=== PATIENT | male | born 1945 | race Caucasian/White ===

== ENCOUNTER 2019-08-01 13:17 | Inpatient (IN) | payer OTHER ==
[~2019-08-01] VITALS: Ht 182.9 cm; Wt 124.3 kg
[2019-08-01] VITALS (29 sets, daily range): BP systolic 41–165; BP diastolic 16–108
--- NOTE | 2019-08-01 13:20 | NUR ---
NELA RA [facility] FROM [facility], UNRESPONSIVE AT 1230 PM, LAST SEEN WELL AT 1130, pt to bed 5, pt on monitor, -sob, pending md knutson
[2019-08-01] MEDS ORDERED: LACT1CAP71 PO (13:58)
[2019-08-01] MEDS ORDERED: MYCO500T PO (13:58)
[2019-08-01] MEDS ORDERED: SENN-168 PO (13:58)
[2019-08-01] MEDS ORDERED: METO25TA20 PO (13:58)
[2019-08-01] MEDS ORDERED: CYCL100C8 PO (13:58)
[2019-08-01] MEDS ORDERED: FOLI1CAP7 PO (13:58)
[2019-08-01] MEDS ORDERED: FEBU40TA PO (13:58)
[2019-08-01] MEDS ORDERED: INSU100V7 SQ (13:58)
[2019-08-01] MEDS ORDERED: PRED2.5T PO (13:58)
[2019-08-01] MEDS ORDERED: ZINC1CAP2 PO (13:58)
[2019-08-01] MEDS ORDERED: LEVO750T21 PO (13:58)
[2019-08-01] MEDS ORDERED: LEVA0.6320 IH (13:58)
[2019-08-01] MEDS ORDERED: ASCO500T9 PO (13:58)
[2019-08-01] MEDS ORDERED: GLUC1KIT IM (13:58)
[2019-08-01] MEDS ORDERED: DOCU-141 PO (13:58)
[2019-08-01] MEDS ORDERED: DILT180C93 PO (13:58)
[2019-08-01] MEDS ORDERED: ATOR10TA PO (13:58)
[2019-08-01] MEDS ORDERED: LISI2.5T2 PO (13:58)
[2019-08-01] MEDS ORDERED: FOLI0.8T PO (13:58)
[2019-08-01] MEDS ORDERED: AMIN30LI2 PO (13:58)
[2019-08-01] MEDS ORDERED: TAMS-12 PO (13:58)
[2019-08-01] MEDS ORDERED: INSU100V27 SQ (13:58)
[2019-08-01] MEDS ORDERED: APIX5TAB PO (13:58)
[2019-08-01] MEDS ORDERED: PANT40TA2 PO (13:58)
[2019-08-01] MEDS ORDERED: LOPE2TAB25 PO (13:58)
[2019-08-01] MEDS ORDERED: TRAM50TA2 PO (13:58)
[2019-08-01] MEDS ORDERED: FERR325T23 PO (13:58)
[2019-08-01] MEDS ORDERED: ACET-868 PO (13:58)
[2019-08-01] MEDS ORDERED: ASPI-1169 PO (13:58)
[2019-08-01] MEDS ORDERED: PREG100C PO (13:58)
[2019-08-01] MEDS ORDERED: FURO-145 PO (13:58)
[2019-08-01] MEDS ORDERED: METR500T PO (13:58)
[2019-08-01 14:00] LABS: CARBON DIOXIDE 20 mmol/L (21-32); CHLORIDE 97 mmol/L (98-107); GLUCOSE 129 mg/dL (74-106); POTASSIUM 4.1 mmol/L (3.5-5.1); SODIUM SERUM 133 mmol/L (136-145)
[2019-08-01] MEDS ORDERED: IV NS 0.9% 1,000 ML BAG IV ONE (14:00)
[2019-08-01] MEDS ORDERED: VANCOMYCIN HCL 1 GM in IV D5W 260 ML IV ONE (14:00)
[2019-08-01] MEDS ORDERED: PIPERACILLIN /TAZOBACTAM 3.375 G in IV D5W 50 ML IV ONE (14:00)
[2019-08-01] MEDS ORDERED: NOREPINEPHRINE 8 MG in IV D5W 500 ML IV ONE (14:00)
[2019-08-01 14:01] LABS: CALCIUM, SERUM 7.1 mg/dL (8.5-10.1); UREA NITROGEN, BLOOD 92 mg/dL (7-18)
--- NOTE | 2019-08-01 14:03 | NUR ---
per dr tran to start levophed on piv, called picc line nurse at this time
[2019-08-01 14:07] LABS: APPEARANCE,URINE Cloudy (CLEAR); BILIRUBIN,URINE Negative (NEGATIVE); BLOOD, URINE Negative Ery/uL (NEGATIVE); COLOR,URINE Yellow (YELLOW); KETONES,URINE Negative (NEGATIVE); LEUKOCYTE ESTERASE ,URINE Trace (NEGATIVE); NITRITE, URINE Negative (NEGATIVE); PROTEIN,URINE Trace mg/dl (NEGATIVE); UGLUCOSE Negative (NEGATIVE); UROBILINOGEN,URINE 0.2 EU/dL (0.2)
[2019-08-01 14:10] LABS: ALKALINE PHOSPHATASE 50 U/L (46-116); ASPARTATE AMINOTRANSFERASE 60 U/L (15-37); BILIRUBIN,DIRECT 0.2 mg/dL (0.0-0.2); BILIRUBIN,TOTAL 0.3 mg/dL (0.2-1.0)
[2019-08-01 14:11] LABS: ACETAMINOPHEN 0 ug/ml (10-30); ALANINE AMINOTRANSFERASE 23 U/L (12-78); ALCOHOL, BLOOD 0 mg/dL (0-0); SALICYLATE 2.3 mg/dL (2.8-20.0); TOTAL PROTEIN, SERUM 5.6 g/dL (6.4-8.2)
[2019-08-01 14:18] LABS: BACTERIA,URINE Few /HPF (None Seen); RBC,URINE 0-2 /HPF (0-2); SQUAMOUS EPITHELIAL CELL,UR None Seen /HPF (None Seen)
[2019-08-01] MEDS ORDERED: PROPOFOL 0 ML ONE (14:25)
--- NOTE | 2019-08-01 14:26 | NUR ---
rsi initiated by dr. tran orders for succ 100, etomidate 20, given ivp under md's direct supervision
[2019-08-01] MEDS ORDERED: MORPHINE SULFATE INJ 2 MG/ML DISP.SYRIN IV ONE (14:30)
[2019-08-01] MEDS ORDERED: SUCCINYLCHOLINE CHLORIDE 20 MG/ML VIAL IV ONE (14:30)
[2019-08-01] MEDS ORDERED: ETOMIDATE 2 MG/ML VIAL IV ONE (14:30)
--- NOTE | 2019-08-01 14:36 | NUR ---
PT INTUBATED BY KITTY ESPAÑA W/8ETT @ 24CM LIPLINE, TIBE PLACEMENT CONFIRMED W/ POSITIVE COLOR CHANGE ON CO2 DETECTOR, EQUAL BREATH SOUNDS. PLACED ON PB840 VENT W/ SETTINGS PER . ALARMS CHECKED AND AUDIBLE, VENT IN RED OUTLET. ETT SECURED, PATENT, PT SX'ED PRN. BREATH SOUNDS EQUAL, DIMINISHED/RHONCHI. Addendum: 08/01/19 at 1438 by REX MORTENSEN RT Amended: Links added.
[2019-08-01] MEDS ORDERED: MORPHINE SULFATE INJ 2 MG/ML DISP.SYRIN ONE (14:42)
[2019-08-01] MEDS ORDERED: MORPHINE SULFATE INJ 4 MG/ML DISP.SYRIN ONE (14:42)
--- NOTE | 2019-08-01 14:50 | NUR ---
pt to ct
--- NOTE | 2019-08-01 14:54 | NUR ---
BACK FROM CT
[2019-08-01 15:09] LABS: BASOPHILS # (AUTO) 0.1 /CMM (0.0-0.2); BASOPHILS % (AUTO) 0.2 % (0.0-2.0); EOSINOPHILS % (AUTO) 0.1 % (0.0-6.0); HEMATOCRIT 29 % (39-51); HEMOGLOBIN 8.6 g/dL (13.5-17.5); LYMPHOCYTES # (AUTO) 1.2 /CMM (0.8-4.8); LYMPHOCYTES % (AUTO) 3.8 % (20.0-44.0); MEAN CORPUSCULAR HGB CONC 30 g/dl (31.0-36.0); MEAN CORPUSCULAR VOLUME 82 fL (80-96); NEUTROPHILS # (AUTO) 29.3 /CMM (1.8-8.9); NEUTROPHILS % (AUTO) 89.9 % (43.0-81.0); PLATELET COUNT (AUTO) 312 /CMM (150-450); RED BLOOD CELL COUNT(AUTO) 3.53 MIL/uL (4.5-6.0)
--- NOTE | 2019-08-01 15:10 | NUR ---
spoke to presley schaeffer, will call back for ct
--- NOTE | 2019-08-01 15:11 | NUR ---
BED [id number]
--- NOTE | 2019-08-01 15:29 | NUR ---
PAGED THRU EXCHANGE AND CELL NUMBER
[2019-08-01 15:30] LABS: WHITE BLOOD COUNT (AUTO) 32.6 K/uL (4.3-11.0)
[2019-08-01 15:48] LABS: LYMPHOCYTES % (MANUAL) 6 % (16-48); MONOCYTES % (MANUAL) 4 % (0-11.0); NEUTROPHILS % (MANUAL) 90 (42-76)
[2019-08-01 15:49] LABS: ABG BASE EXCESS -15.4 mmol/L; ABG OXYGEN SATURATION 98.4 % (92.0-98.5); ABG PCO2 43.9 mmHg (35.0-45.0); ABG PH 7.104 (7.350-7.450); ABG PO2 210.7 mmHg (75.0-100.0); AaDO2 458.4 mmHg; COHb 0.3 % (0.5-1.5); MetHb 0.4 % (0.0-1.5); O2Hb 97.7 % (94.0-97.0); PEEP,BG 0 cm H2O; SITE, ABG Left Brachial; VT, ABG 500 mL
--- NOTE | 2019-08-01 16:23 | NUR ---
pt taken up to icu roon 256 via acls transfer
[2019-08-01] MEDS ORDERED: ALBUTEROL FS 2.5 MG/0.5 ML VIAL.NEB NEB PRN (16:30)
[2019-08-01] MEDS ORDERED: IPRATROPIUM NEB FS 0.5 MG/2.5 ML AMPUL.NEB NEB PRN (16:30)
[2019-08-01] MEDS ORDERED: IV NS 0.9% 1,000 ML BAG IV PRN (16:30)
[2019-08-01] MEDS ORDERED: NOREPINEPHRINE 8 MG in IV D5W 500 ML IV PRN (16:30)
--- NOTE | 2019-08-01 16:30 | NUR ---
RN NOTES RECEIVED PATIENT FROM ER. ORALLY INTUBATED WITH ETT 8CM AT 24.5CM ON THE LIP. VENT SETTINGS FOLLOWS AC 18, VT AT 550, FIO2 AT 100%, PEEP OF 5. SATS ON THE LOW 90'S. WITH ONGOING LEVOPHED AT 40 MCG/ MIN STARTED AT THE ER- WILL CONTINUE TO MONITOR AND INFUSE MEDICATION. PATIENT CLEANED AND MADE COMFORTABLE TO BED, SKIN ASSESSMENT AND PICTURES TAKEN. PATIENT ATTACHED TO MONITOR FOR MONITORING. DR. ROMANO AT THE UNIT, WITH ORDERS MADE AND CARRIED OUT. CLARIFIED WITH DR ROMANO IF LEVOPHED CAN BE GIVEN ON DOUBLE CONCENTRATION. GAVE OKAY TO ORDER. ALSO VERBALIZED ORDER TO INSERT OGT TO ENABLE US TO ADMINISTER MEDICATION. ORDER NOTED AND CARRIED OUT
[2019-08-01] MEDS ORDERED: NOREPINEPHRINE 16 MG in IV D5W 500 ML IV PRN (17:00)
[2019-08-01] MEDS ORDERED: DEXTROSE 50%-WATER 50 ML DISP.SYRIN IV PRN (17:00)
--- NOTE | 2019-08-01 17:34 | NUR ---
PATIENT REC'D FROM ER [facility]. ALARMS CHECKED + AUDIBLE. PATIENT IN CRITICAL CONDITION. AMBU BAG AT HOB Addendum: 08/01/19 at 1735 by NATTY MODI RT Amended: Links added.
[2019-08-01] MEDS: Sodium Bicarbonate 100 MEQ in IV NS 0.9% 1,000 ML IV PRN (17:41)
[2019-08-01] MEDS: MYCOPHENOLATE MOFETIL 250 MG CAPSULE PO SCH (18:13)
[2019-08-01] MEDS: ASCORBIC ACID 500 MG TABLET PO SCH (18:13)
[2019-08-01] MEDS: APIXABAN 2.5 MG TABLET PO SCH (18:13)
[2019-08-01] MEDS: BLOOD SUGAR DIAGNOSTIC 1 EACH STRIP IN SCH ×2 (18:14→23:46)
[2019-08-01] MEDS: INSULIN REGULAR, HUMAN 100 UNIT/ML 3 ML VIAL SQ PRN ×2 (18:15→23:56)
[2019-08-01] MEDS: VANCOMYCIN HCL 125 MG/2.5 ML ORAL.SUSP NG SCH (18:17)
[2019-08-01] MEDS: LACTOBACILLUS RHAMNOSUS GG 1 EACH CAP.SPRINK PO SCH (18:17)
--- NOTE | 2019-08-01 19:30 | NUR ---
RN NOTES ENDORSED PATIENT FOR CONTINUITY OF CARE. SEDATED WITH DIPRIVAN AT 5MCG/MIN. STILL ON VENT AND TOLERATING CURRENT VENT SETTING. ON LEVOPHED AT 2MCG/MIN AND IVF AT 100CC/HR. HOB ELEVATED. BILATERAL SOFT RESTRAINTS IN PLACE. SAFETY MEASURES IN PLACE
--- NOTE | 2019-08-01 19:30 | NUR ---
RAILROAD POLICE NOTE PATIENT RECEIVED FROM DAY SHIFT IN BED ORALLY INTUBATED WITH OGT IN PLACE FOR MEDS PER DR ROMANO. PATIENT CURRENTLY STARTED ON PROPOFOL DRIP AT 5MG. PATIENT STILL RESTLESS APPEARS UNCOMFORTABLE. TITRATING UP TO 10 MCG. RN WILL CONTINUE TO MONITOR MENTAL STATUS. PATIENT TOLERATING CURRENT VENT SETTINGS. NO S/S OF RESP DISTRESS. SATURATION 98%. PATIENT HAS EVERT PICC LINE RUNNING LEVO AT 2 MG, AND NS AT 100 ML/HR. PATIENT GIVEN ORAL CARE AND TURNED AND REPOSITIONED. RN WILL CONTINUE TO MONITOR FOR CHANGES. SAFETY PRECAUTIONS IN PLACE.
--- NOTE | 2019-08-01 19:58 | NUR ---
PRODUCT TRAINER NOTE CRITICAL MG REPORTED TO ROSALINA 0.6, ORDERED 6 GRAMS OF MG TO BE GIVEN IV
[2019-08-01] MEDS ORDERED: Magnesium 1GM/D5W 100ML PREMIX PIGGYBACK IV ONE (20:00)
--- NOTE | 2019-08-01 20:00 | NUR ---
ORNAMENTAL BRONZE WORKER NOTE PATIENT BECAME SEVERELY HYPOTENSIVE, MD ROMANO NOTIFIED ORDERED 500 NSS BOLUS, 1 UNIT PRBC, 25 G OF ALBUMIN AND START MARIA G DRIP WHEN LEVO MAXES OUT.
--- NOTE | 2019-08-01 20:10 | NUR ---
RECEIVED PT INTUBATED 8.0 ETT SECURED AT 24CM AT THE LIP. NO RESP DISTRESS. PT TOLERATING VENT SETTINGS. SX'D FOR MOD AMT OF THICK WHITE SECRETIONS. VENT ALARMS SET AND AUDIBLE. AMBU BAG AT BEDSIDE. CONTINUE [facility] VENT SUPPORT. Addendum: 08/01/19 at 2011 by JAMIE WEBSTER RT Amended: Links added.
[2019-08-01] MEDS: Magnesium 1GM/D5W 100ML PREMIX 100 ML IV SCH ×3 (20:32→23:46)
[2019-08-01 20:55] LABS: ABG BASE EXCESS -15.3 mmol/L; ABG OXYGEN SATURATION 95.7 % (92.0-98.5); ABG PCO2 45.4 mmHg (35.0-45.0); ABG PH 7.097 (7.350-7.450); ABG PO2 104.8 mmHg (75.0-100.0); AaDO2 562.8 mmHg; COHb 0.3 % (0.5-1.5); MetHb 0.4 % (0.0-1.5); SITE, ABG Right Radial
--- NOTE | 2019-08-01 20:57 | NUR ---
STAT ABG DONE. NOTIFIED RAVIN GAMABAKING FACTORY WORKER WITH THE RESULT.
[2019-08-01] MEDS ORDERED: IV NS 0.9% 500 ML IV ONE (21:00)
[2019-08-01] MEDS ORDERED: ALBUMIN 25% 12.5 GM/50 ML BOTTLE IV ONE ×2 (21:00)
[2019-08-01] MEDS ORDERED: HEPARIN SODIUM, PORCINE 5000 UNITS/1 ML VIAL SQ SCH (21:00)
[2019-08-01 21:34] LABS: CALCIUM, SERUM 6.4 mg/dL (8.5-10.1); CARBON DIOXIDE 17 mmol/L (21-32); CHLORIDE 99 mmol/L (98-107); CREATININE 5.6 mg/dL (0.6-1.3); GLUCOSE 252 mg/dL (74-106); POTASSIUM 4.2 mmol/L (3.5-5.1); SODIUM SERUM 135 mmol/L (136-145); UREA NITROGEN, BLOOD 79 mg/dL (7-18)
[2019-08-01] MEDS ORDERED: PHENYLEPHRINE 10 MG/ML VIAL ONE (21:36)
[2019-08-01] MEDS: PIPERACILLIN /TAZOBACTAM 2.25 G in IV D5W 50 ML IV SCH (21:55)
[2019-08-01] MEDS: ATORVASTATIN 10 MG TABLET PO SCH (22:09)
[2019-08-01] MEDS: FAMOTIDINE/PF INJ 20 MG/2 ML VIAL IV SCH (22:09)
[2019-08-01] MEDS: PHENYLEPHRINE 80 MG in IV D5W 250 ML IV PRN (22:28)
[2019-08-01] MEDS ORDERED: SODIUM BICARBONATE SYR 50 MEQ/50 ML DISP.SYRIN IV ONE (22:30)
[2019-08-01] MEDS ORDERED: INSULIN GLARGINE, 100 UNIT/ML CARTRIDGE SQ ONE (22:30)
--- NOTE | 2019-08-01 22:30 | NUR ---
MANAGER CANCER NOTE DTR OF PATIENT, DONATO, ARRIVED ON UNIT AND REQUESTED THAT PATIENT BE DNR PER PATIENT'S PREVIOUS ADVANCED DIRECTIVE. NOTIFIED OF FAMILY WISHES AND MD ROMANO APPROVED. CODE STATUS CHAGNED
--- NOTE | 2019-08-01 23:12 | NUR ---
VT CHANGED TO [address] ROMANO
[2019-08-01] MEDS: PROPOFOL 100 ML IV PRN (23:44)
[2019-08-01] MEDS: NOREPINEPHRINE 16 MG in IV D5W 500 ML IV PRN (23:50)
[2019-08-02] VITALS (105 sets, daily range): BP systolic 43–137; BP diastolic 21–86
--- NOTE | 2019-08-02 | NUR ---
WATER REUSE PROGRAM MANAGER NOTE BP STABALIZED ON MARIA G AND LEVO RN WILL CONTINUE TO MONITOR AND TITRATE NEEDED
[2019-08-02] MEDS: VANCOMYCIN HCL 125 MG/2.5 ML ORAL.SUSP NG SCH ×5 (00:22→23:22)
[2019-08-02] MEDS: Magnesium 1GM/D5W 100ML PREMIX 100 ML IV SCH ×3 (00:59→03:11)
[2019-08-02] MEDS: NOREPINEPHRINE 16 MG in IV D5W 500 ML IV PRN ×3 (03:12→17:10)
[2019-08-02] MEDS: PIPERACILLIN /TAZOBACTAM 2.25 G in IV D5W 50 ML IV SCH ×3 (04:14→21:38)
[2019-08-02] MEDS: Sodium Bicarbonate 100 MEQ in IV NS 0.9% 1,000 ML IV PRN ×2 (04:26→11:31)
[2019-08-02] MEDS: BLOOD SUGAR DIAGNOSTIC 1 EACH STRIP IN SCH ×4 (06:07→23:21)
[2019-08-02 06:11] LABS: BASOPHILS % (AUTO) 0.1 % (0.0-2.0); HEMATOCRIT 33 % (39-51); HEMOGLOBIN 10.2 g/dL (13.5-17.5); LYMPHOCYTES # (AUTO) 1.3 /CMM (0.8-4.8); LYMPHOCYTES % (AUTO) 3.5 % (20.0-44.0); MEAN CORPUSCULAR HGB CONC 31 g/dl (31.0-36.0); MEAN CORPUSCULAR VOLUME 82 fL (80-96); MONOCYTES # (AUTO) 1.7 /CMM (0.1-1.30); MONOCYTES % (AUTO) 4.4 % (2.0-12.0); NEUTROPHILS # (AUTO) 34.5 /CMM (1.8-8.9); PLATELET COUNT (AUTO) 372 /CMM (150-450); RED BLOOD CELL COUNT(AUTO) 4.06 MIL/uL (4.5-6.0)
[2019-08-02] MEDS: INSULIN REGULAR, HUMAN 100 UNIT/ML 3 ML VIAL SQ PRN ×4 (06:15→23:19)
[2019-08-02 06:29] LABS: CREATININE, URINE 62.1 MG/DL (30.0-125.0)
[2019-08-02 06:29] LABS: ALANINE AMINOTRANSFERASE 34 U/L (12-78); ALKALINE PHOSPHATASE 81 U/L (46-116); ASPARTATE AMINOTRANSFERASE 129 U/L (15-37); BILIRUBIN,TOTAL 0.8 mg/dL (0.2-1.0); CALCIUM, SERUM 6.3 mg/dL (8.5-10.1); CARBON DIOXIDE 19 mmol/L (21-32); CHLORIDE 96 mmol/L (98-107); CREATININE 5.6 mg/dL (0.6-1.3); GLUCOSE 295 mg/dL (74-106); MAGNESIUM 1.9 mg/dL (1.8-2.4); PHOSPHORUS 6.9 mg/dL (2.5-4.9); POTASSIUM 3.9 mmol/L (3.5-5.1); SODIUM SERUM 132 mmol/L (136-145); TOTAL PROTEIN, SERUM 5.1 g/dL (6.4-8.2); UREA NITROGEN, BLOOD 77 mg/dL (7-18)
[2019-08-02] MEDS: PROPOFOL 100 ML IV PRN ×4 (06:33→23:57)
[2019-08-02 06:36] LABS: THYROID STIMULATING HORMONE 2.516 uIU/mL (0.358-3.74)
[2019-08-02 06:38] LABS: CREATINE KINASE, TOTAL 1660 U/L (39-308)
[2019-08-02 06:49] LABS: WHITE BLOOD COUNT (AUTO) 37.5 K/uL (4.3-11.0)
[2019-08-02 07:00] LABS: APPEARANCE,URINE CLOUDY (CLEAR); BILIRUBIN,URINE SMALL (NEGATIVE); BLOOD, URINE LARGE Ery/uL (NEGATIVE); COLOR,URINE YELLOW (YELLOW); KETONES,URINE NEGATIVE (NEGATIVE); LEUKOCYTE ESTERASE ,URINE SMALL (NEGATIVE); NITRITE, URINE NEGATIVE (NEGATIVE); PH,URINE 5.5 (5.0-8.0); PROTEIN,URINE >=300 mg/dl (NEGATIVE); UGLUCOSE 100 MG/DL mg/dL (NEGATIVE); UROBILINOGEN,URINE 0.2 EU/dL (0.2)
[2019-08-02 07:07] LABS: URINE TOTAL PROTEIN 710.1 mg/dL (0-11.9)
[2019-08-02 07:17] LABS: RBC,URINE 51-80 /HPF (0-2); SQUAMOUS EPITHELIAL CELL,UR Few /HPF (None Seen)
[2019-08-02 07:18] LABS: BACTERIA,URINE Moderate /HPF (None Seen)
--- NOTE | 2019-08-02 07:23 | NUR ---
BROADCASTER NOTE MD ROMANO NOTIFIED OF CRITICAL LABS, PER MD NOTIFY CARDIOLOGY OF OF ELEVATED TROP
[2019-08-02] MEDS ORDERED: Magnesium 1GM/D5W 100ML PREMIX 100 ML IV SCH (08:00)
[2019-08-02] MEDS ORDERED: INSULIN GLARGINE, 100 UNIT/ML CARTRIDGE SQ ONE (08:00)
[2019-08-02] MEDS ORDERED: Potassium Phosphate meq 11 MEQ in IV D5W 100 ML IV SCH (08:00)
--- NOTE | 2019-08-02 08:03 | NUR ---
WOUND CARE CONSULT: PT PRESENTS INTUBATED WITH SACRAL DEEP TISSUE INJURY IN EVOLUTION AND DRY NECROTIC WOUNDS TO LEFT FOOT AND HEEL, PRESENT ON ADMISSION. RT FOOT NOTED TO HAVE DUSKY COLOR. PT INCONTINENT OF LOOSE STOOL. PER DR ROMANO, NO PODIATRY/SURGICAL CONSULTS NEEDED. RECOMMENDATIONS MADE FOR WOUND CARE AND SKIN PROTECTION. DISCUSSED WITH NURSING STAFF. PT ON LOREE ISOFLEX LOW AIRLOSS BED. WILL SEE PRN. ESPAÑA IN AGREEMENT WITH PLAN OF CARE. Addendum: 08/02/19 at 0806 by DONATO ROUSSEAU WNDNU Amended: Links added.
--- NOTE | 2019-08-02 08:12 | NUR ---
VILMA CHANGES BELOW PER : FIO2 80% Addendum: 08/02/19 at 0812 by GINGER IVERSON RT Amended: Links added.
[2019-08-02] MEDS ORDERED: Z GUARD REMEDY 2 OZ OINT TP PRN (08:30)
[2019-08-02] MEDS ORDERED: FUROSEMIDE 20 MG/2 ML VIAL IV ONE (08:33)
[2019-08-02 08:44] LABS: ABG BASE EXCESS -7.7 mmol/L; ABG OXYGEN SATURATION 94.4 % (92.0-98.5); ABG PCO2 35.4 mmHg (35.0-45.0); ABG PH 7.316 (7.350-7.450); AaDO2 457.2 mmHg; COHb 0.3 % (0.5-1.5); MetHb 0.5 % (0.0-1.5); O2Hb 93.6 % (94.0-97.0); PEEP,BG 0 cm H2O; SITE, ABG Right Radial; VT, ABG 550 mL
[2019-08-02] MEDS: HYDROCORTISONE SOD SUCCINATE 100 MG/2 ML VIAL IV SCH ×3 (09:15→17:17)
[2019-08-02] MEDS: ASPIRIN 81 MG TAB.CHEW PO SCH (09:15)
[2019-08-02] MEDS: ASCORBIC ACID 500 MG TABLET PO SCH ×2 (09:15→17:17)
[2019-08-02] MEDS: FAMOTIDINE/PF INJ 20 MG/2 ML VIAL IV SCH ×2 (09:15→21:38)
[2019-08-02] MEDS: LACTOBACILLUS RHAMNOSUS GG 1 EACH CAP.SPRINK PO SCH (09:15)
[2019-08-02] MEDS: Z GUARD REMEDY 2 OZ OINT TP SCH (09:16)
[2019-08-02] MEDS: predniSONE 5 MG TABLET PO SCH (09:16)
[2019-08-02] MEDS: MYCOPHENOLATE MOFETIL 250 MG CAPSULE PO SCH ×2 (09:23→19:20)
[2019-08-02] MEDS: APIXABAN 2.5 MG TABLET PO SCH (09:23)
[2019-08-02 09:24] LABS: BAND % (MANUAL) 4 % (0.0-5.0); LYMPHOCYTES % (MANUAL) 5 % (16-48); MONOCYTES % (MANUAL) 5 % (0-11.0); NEUTROPHILS % (MANUAL) 86 (42-76)
[2019-08-02 09:40] LABS: EOSINOPHIL,URINE None Seen
[2019-08-02] MEDS: METRONIDAZOLE 500MG/ NS 100ML 500 MG in PREMIX 1 EA IV SCH ×2 (11:02→17:17)
[2019-08-02] MEDS: IV NS 0.9% 1,000 ML IV PRN ×2 (13:56→23:50)
[2019-08-02] MEDS: PHENYLEPHRINE 80 MG in IV D5W 250 ML IV PRN (15:37)
[2019-08-02] MEDS ORDERED: BUMETANIDE INJ 0.25 MG/ML VIAL IV SCH (16:00)
--- NOTE | 2019-08-02 16:41 | NUR ---
RN NOTE 0715: Received patient with ETT to vent, tolerated settings at this time. No respiratory distress noted. With OGT intact, clamped. With EVERT PICC intact. On NS with 2amps Bicarb at 100, Levo 40, Isaac 150, Diprivan 10. Will titrate pressors as ordered. With Camara cath intact, noted with very minimal UOP, harper colored urine, drained to BSD. 0800: Noted patient able to answer yes/ no questions by nodding/shaking head, follows commands. Left foot DTI with Mepilex. Noted with mild agitation, able to arouse easily on 10mcg, placed on 15mcg Diprivan, will monitor. 0810: S/E by Dr. Heaton, with order to titrate lower FIO2, lowered to 80% from 100, RT aware. 0900: S/E by Dr. Rodriguez, aware for the ABG, titrating FIO2. 1135: S/E by Dr. Marcano, aware for the labs, Trop 22.3, ordered another trop level. with order to DC Eliquis and will start on Heparin drip @ 1999. 1300: S/E by Dr. Zavala, reviewed meds, no new order at this time. 1310: Dr. Thompson in the unit, amde aware for the Trop 53.213, with order of stat EKG. Family at bedside, spoke with cardio, unable to do cardiac cath, will give Heparin @ 1999. 1400: Dr. Heaton reviewed ABG, with order to DC Bicarb drip, keep on NS @ 100. 1530: Made Dr. Heaton aware, still very low UOP even after Lasix 40, with order of Bumex 1gm q12. 1630: Clarified with Dr. Zavala, no Bumex or any diuretics for now for possible ATN, made Dr. Heaton aware.
--- NOTE | 2019-08-02 17:44 | NUR ---
FIO2 DECRESED TO 50% SPO2 94% TO 98% Addendum: 08/02/19 at 1745 by GINGER IVERSON RT Amended: Links added.
[2019-08-02] MEDS: HEPARIN INFUSION/D5W 500 ML IV PRN (20:10)
[2019-08-02] MEDS: ATORVASTATIN 10 MG TABLET PO SCH (21:38)
[2019-08-03] VITALS (94 sets, daily range): BP systolic 79–131; BP diastolic 24–87
[2019-08-03] MEDS: METRONIDAZOLE 500MG/ NS 100ML 500 MG in PREMIX 1 EA IV SCH ×3 (00:24→16:44)
[2019-08-03] MEDS: NOREPINEPHRINE 16 MG in IV D5W 500 ML IV PRN ×4 (00:24→22:47)
[2019-08-03 04:27] LABS: BASOPHILS # (AUTO) 0.1 /CMM (0.0-0.2); BASOPHILS % (AUTO) 0.2 % (0.0-2.0); HEMATOCRIT 34 % (39-51); HEMOGLOBIN 10.4 g/dL (13.5-17.5); LYMPHOCYTES # (AUTO) 0.6 /CMM (0.8-4.8); LYMPHOCYTES % (AUTO) 1.8 % (20.0-44.0); MEAN CORPUSCULAR HGB CONC 31 g/dl (31.0-36.0); MEAN CORPUSCULAR VOLUME 80 fL (80-96); MONOCYTES # (AUTO) 1.4 /CMM (0.1-1.30); MONOCYTES % (AUTO) 4.3 % (2.0-12.0); NEUTROPHILS % (AUTO) 93.7 % (43.0-81.0); PLATELET COUNT (AUTO) 341 /CMM (150-450); RED BLOOD CELL COUNT(AUTO) 4.21 MIL/uL (4.5-6.0)
[2019-08-03 04:43] LABS: ALANINE AMINOTRANSFERASE 33 U/L (12-78); ALBUMIN 1.6 g/dL (3.4-5.0); ALKALINE PHOSPHATASE 69 U/L (46-116); ASPARTATE AMINOTRANSFERASE 91 U/L (15-37); BILIRUBIN,TOTAL 0.5 mg/dL (0.2-1.0); CALCIUM, SERUM 6.5 mg/dL (8.5-10.1); CARBON DIOXIDE 20 mmol/L (21-32); CHLORIDE 92 mmol/L (98-107); CREATININE 5.2 mg/dL (0.6-1.3); MAGNESIUM 1.5 mg/dL (1.8-2.4); PHOSPHORUS 6.6 mg/dL (2.5-4.9); POTASSIUM 4.1 mmol/L (3.5-5.1); SODIUM SERUM 127 mmol/L (136-145); TOTAL PROTEIN, SERUM 4.8 g/dL (6.4-8.2)
[2019-08-03 04:44] LABS: CREATINE KINASE, TOTAL 872 U/L (39-308)
[2019-08-03 05:25] LABS: GLUCOSE 353 mg/dL (74-106); UREA NITROGEN, BLOOD 85 mg/dL (7-18)
[2019-08-03 05:30] LABS: LYMPHOCYTES % (MANUAL) 1 % (16-48); MONOCYTES % (MANUAL) 3 % (0-11.0); NEUTROPHILS % (MANUAL) 96 (42-76)
[2019-08-03] MEDS: VANCOMYCIN HCL 125 MG/2.5 ML ORAL.SUSP NG SCH ×3 (05:51→17:00)
[2019-08-03] MEDS: PIPERACILLIN /TAZOBACTAM 2.25 G in IV D5W 50 ML IV SCH ×3 (05:51→21:52)
[2019-08-03] MEDS: BLOOD SUGAR DIAGNOSTIC 1 EACH STRIP IN SCH ×3 (05:51→17:29)
[2019-08-03] MEDS: INSULIN REGULAR, HUMAN 100 UNIT/ML 3 ML VIAL SQ PRN ×3 (05:53→17:29)
[2019-08-03] MEDS: INSULIN GLARGINE, 100 UNIT/ML CARTRIDGE SQ SCH ×2 (06:34→22:03)
[2019-08-03] MEDS: PROPOFOL 100 ML IV PRN ×2 (06:50→15:42)
--- NOTE | 2019-08-03 07:00 | NUR ---
RN NOTE RECEIVED PT ON BED, ORALLY INTUBATED , SEDATED, ON PROPOFOL DRIP AT 20 MCG/KG/MIN TOLERATING CURRENT VENT SETTING WELL, NO S/S OF RESP DISTRESS. O2 SAT WNL , PATIENT HAS R UA PICC LINE WITH LEVO AT 36MCG/MIN MG, AND NS AT 100 ML/HR AND HEPARIN AT 900UNITS /HR RUNNING , SR UP x3, CALL LIGHT WITHIN EASY REACH, SAFETY PRECAUTIONS IN PLACE. CONTINUE TO MONITOR .
--- NOTE | 2019-08-03 07:25 | NUR ---
PATIENT REMAINS IN NO ACUTE DISTRESS IN BED. PATIENT DID NOT HAVE ANY SIGNIFICANT CHANGE IN CONDITION DURING SHIFT. ALL NEEDS MET, ALL ORDERS CARRIED OUT. PATIENT TOLERATED VENT SETTING WELL. WILL ENDORSE CARE TO AM RN FOR CONTINUITY OF CARE.
[2019-08-03] MEDS ORDERED: BUMETANIDE INJ 0.25 MG/ML VIAL IV ONE (08:00)
--- NOTE | 2019-08-03 08:00 | NUR ---
RN NOTES DR ROMANO NOTIFED REGARDING CK, MB 119.7, NO NEW ORDER RECEIVED , CONTINUE TO MONITOR .
[2019-08-03] MEDS: LACTOBACILLUS RHAMNOSUS GG 1 EACH CAP.SPRINK PO SCH (08:21)
[2019-08-03] MEDS: FAMOTIDINE/PF INJ 20 MG/2 ML VIAL IV SCH ×2 (08:21→21:52)
[2019-08-03] MEDS: predniSONE 5 MG TABLET PO SCH (08:21)
[2019-08-03] MEDS: HYDROCORTISONE SOD SUCCINATE 100 MG/2 ML VIAL IV SCH ×3 (08:21→16:43)
[2019-08-03] MEDS: ASPIRIN 81 MG TAB.CHEW PO SCH (08:22)
[2019-08-03] MEDS: ASCORBIC ACID 500 MG TABLET PO SCH ×2 (08:22→16:42)
[2019-08-03] MEDS: MYCOPHENOLATE MOFETIL 250 MG CAPSULE PO SCH ×2 (08:23→16:43)
[2019-08-03] MEDS: Z GUARD REMEDY 2 OZ OINT TP SCH (08:34)
[2019-08-03] MEDS: Magnesium 1GM/D5W 100ML PREMIX 100 ML IV SCH ×2 (08:43→09:38)
[2019-08-03 08:49] LABS: ABG BASE EXCESS -10.4 mmol/L; ABG OXYGEN SATURATION 93.4 % (92.0-98.5); ABG PCO2 29.5 mmHg (35.0-45.0); AaDO2 248.3 mmHg; COHb 0.3 % (0.5-1.5); MetHb 0.6 % (0.0-1.5); O2Hb 92.6 % (94.0-97.0); SITE, ABG Right Radial
[2019-08-03] MEDS: IV NS 0.9% 1,000 ML IV PRN ×2 (09:31→17:58)
--- NOTE | 2019-08-03 10:30 | NUR ---
RN NOTES PTT 98.6 , HEPARIN GTT ON HOLD FOR ONE HOUR PER PROTOCOL .
[2019-08-03] MEDS ORDERED: Magnesium 1GM/D5W 100ML PREMIX 1 G in PREMIX 1 EA IV SCH (11:30)
[2019-08-03 12:06] LABS: *SPE ALBUMIN 2.3 g/dL (2.9-4.4); *SPE ALPHA-1-GLOBULIN 0.4 g/dL (0.0-0.4); *SPE ALPHA-2-GLOBULIN 0.7 g/dL (0.4-1.0); *SPE BETA GLOBULIN 0.6 g/dL (0.7-1.3); *SPE GLOBULIN, TOTAL 2.4 g/dL (2.2-3.9); *SPE M-SPIKE Not Observed g/dL (Not Observed); *SPEGAMMA GLOBULIN 0.8 g/dL (0.4-1.8)
[2019-08-03 13:16] LABS: PTH, INTACT 631 pg/mL (15-65)
--- NOTE | 2019-08-03 14:00 | NUR ---
RN NOTES VSS STABLE, CONTINUE TO MONITOR.
[2019-08-03] MEDS: NEPRO 1,000 ML BOTTLE GT PRN (16:42)
--- NOTE | 2019-08-03 18:00 | NUR ---
RN NOTE PT STILL INTUBATED, TOLERATING VENT SETTING WELL, SUPPORTIVE FAMILY AT THE BEDSIDE, TOLERATING TF AT 30CC /HR VIA OG TUBE WELL, NS AT 125CC/HR RUNNING , LEVO AT 30 MCG/KG/MIN AT THIS TIME, NO SIGNIFICANT CHANGES NOTED ON THIS SHIFT, WILL ENDOSE TO BLOOD BANK CALENDAR CONTROL CLERK NURSE FOR CONTINUITY OF CARE.
[2019-08-03] MEDS: ATORVASTATIN 10 MG TABLET PO SCH (21:52)
[2019-08-04] VITALS (99 sets, daily range): BP systolic 53–135; BP diastolic 28–64
[2019-08-04] MEDS: BLOOD SUGAR DIAGNOSTIC 1 EACH STRIP IN SCH ×4 (01:05→17:25)
[2019-08-04] MEDS: VANCOMYCIN HCL 125 MG/2.5 ML ORAL.SUSP NG SCH ×4 (01:06→17:05)
[2019-08-04] MEDS: METRONIDAZOLE 500MG/ NS 100ML 500 MG in PREMIX 1 EA IV SCH ×3 (01:06→17:04)
[2019-08-04] MEDS: INSULIN REGULAR, HUMAN 100 UNIT/ML 3 ML VIAL SQ PRN ×3 (01:07→17:26)
[2019-08-04] MEDS: IV NS 0.9% 1,000 ML IV PRN ×3 (02:19→18:52)
[2019-08-04] MEDS: HEPARIN INFUSION/D5W 500 ML IV PRN (02:22)
[2019-08-04] MEDS: PROPOFOL 100 ML IV PRN ×3 (04:15→22:05)
[2019-08-04 04:35] LABS: BASOPHILS % (AUTO) 0.1 % (0.0-2.0); HEMATOCRIT 32 % (39-51); LYMPHOCYTES # (AUTO) 0.8 /CMM (0.8-4.8); LYMPHOCYTES % (AUTO) 2.3 % (20.0-44.0); MEAN CORPUSCULAR HGB CONC 31 g/dl (31.0-36.0); MEAN CORPUSCULAR VOLUME 81 fL (80-96); MONOCYTES # (AUTO) 1.9 /CMM (0.1-1.30); MONOCYTES % (AUTO) 5.4 % (2.0-12.0); NEUTROPHILS # (AUTO) 32.7 /CMM (1.8-8.9); NEUTROPHILS % (AUTO) 92.2 % (43.0-81.0); PLATELET COUNT (AUTO) 307 /CMM (150-450); RED BLOOD CELL COUNT(AUTO) 4.03 MIL/uL (4.5-6.0)
[2019-08-04 04:37] LABS: WHITE BLOOD COUNT (AUTO) 35.5 K/uL (4.3-11.0)
[2019-08-04 04:51] LABS: ALANINE AMINOTRANSFERASE 28 U/L (12-78); ALBUMIN 1.5 g/dL (3.4-5.0); ALKALINE PHOSPHATASE 57 U/L (46-116); ASPARTATE AMINOTRANSFERASE 38 U/L (15-37); BILIRUBIN,TOTAL 0.4 mg/dL (0.2-1.0); CALCIUM, SERUM 6.5 mg/dL (8.5-10.1); CARBON DIOXIDE 19 mmol/L (21-32); CHLORIDE 91 mmol/L (98-107); GLUCOSE 336 mg/dL (74-106); MAGNESIUM 1.7 mg/dL (1.8-2.4); SODIUM SERUM 125 mmol/L (136-145); TOTAL PROTEIN, SERUM 4.7 g/dL (6.4-8.2)
[2019-08-04 04:55] LABS: UREA NITROGEN, BLOOD 80 mg/dL (7-18)
--- NOTE | 2019-08-04 05:00 | NUR ---
EVP BUSINESS DEVELOPMENT NOTES PTT 46.8, NO CHANGE IN HEPARIN GTT, CONTINUE @ 600 UNITS/HR
[2019-08-04] MEDS: PIPERACILLIN /TAZOBACTAM 2.25 G in IV D5W 50 ML IV SCH ×3 (05:59→22:05)
[2019-08-04 06:43] LABS: LYMPHOCYTES % (MANUAL) 2 % (16-48); MONOCYTES % (MANUAL) 3 % (0-11.0); NEUTROPHILS % (MANUAL) 95 (42-76)
--- NOTE | 2019-08-04 07:00 | NUR ---
REFINISH TECHNICIAN CLOSING NOTES NO ACUTE CHANGES NOTED THROUGHOUT SHIFT. LEVOPHED DRIP REMAINS AT 28 MCG/MIN, PROPOFOL GTT @ 10MCG/KG/MIN. WILL ENDORSE THE PATIENT TO THE AM SHIFT NURSE FOR CONTINUITY OF CARE
--- NOTE | 2019-08-04 07:30 | NUR ---
HOTEL AND DINING ROOM CASHIER: Pt. is sedated well, reactive by touch/pain, no SOB, no grimacing, SR/SB/lowest 54, on Levophed gtt, SBP 90-100 now, on Heparin gtt, morning PTT 46.8, continued same rate per protocol by night nurse report, next PTT V in am 08/05, low urine output 80ml/night, BUN/cr 80/5.0, WBC 35, suctioned well, GTF residual 20ml, BG 336, called/updated with all above, ordered Lantus 20units sq one dose
--- NOTE | 2019-08-04 07:55 | NUR ---
DIRECTOR E LEARNING: BP 74/28, HR 60, Levophed increased, bag: /changed
[2019-08-04] MEDS: NOREPINEPHRINE 16 MG in IV D5W 500 ML IV PRN ×2 (07:57→19:00)
[2019-08-04] MEDS ORDERED: INSULIN GLARGINE, 100 UNIT/ML CARTRIDGE SQ ONE (08:00)
--- NOTE | 2019-08-04 08:28 | NUR ---
PRESIDENT FINANCIAL INSTITUTION: troponin 12.5 now, going down/will s/w
[2019-08-04] MEDS: MYCOPHENOLATE MOFETIL 250 MG CAPSULE PO SCH ×2 (08:41→17:02)
[2019-08-04] MEDS: LACTOBACILLUS RHAMNOSUS GG 1 EACH CAP.SPRINK PO SCH (08:49)
[2019-08-04] MEDS: predniSONE 5 MG TABLET PO SCH (08:49)
[2019-08-04] MEDS: ASPIRIN 81 MG TAB.CHEW PO SCH (08:49)
[2019-08-04] MEDS: ASCORBIC ACID 500 MG TABLET PO SCH ×2 (08:49→17:05)
[2019-08-04] MEDS: FAMOTIDINE/PF INJ 20 MG/2 ML VIAL IV SCH ×2 (08:50→22:06)
[2019-08-04] MEDS: HYDROCORTISONE SOD SUCCINATE 100 MG/2 ML VIAL IV SCH ×3 (08:50→17:05)
[2019-08-04] MEDS: Z GUARD REMEDY 2 OZ OINT TP SCH (08:52)
--- NOTE | 2019-08-04 08:59 | NUR ---
PAPER FOLDER: pt.is rest, no SOB, little grimacing with pain stimuli, stopped sedation/continue monitoring
--- NOTE | 2019-08-04 09:27 | NUR ---
DIVERSITY SPECIALIST: pt can open eyes spont., RR 22-26, arms activity, sedation resumed
--- NOTE | 2019-08-04 10:00 | NUR ---
SUPERVISOR TREE TRIMMING: is in room, updated with pt.current status, VS, SB, Levophed, Heparin, Diprivan gtts, PTT, troponin, short sedation vacation reaction, low urine output, GTF, IVF, said: continue Heparin gtt, see new orders
[2019-08-04] MEDS ORDERED: FEE PK DOSING 1 MIN EA MC ONE (10:42)
[2019-08-04] MEDS: Magnesium 1GM/D5W 100ML PREMIX 100 ML IV SCH ×2 (10:54→11:49)
[2019-08-04] MEDS: BUMETANIDE INJ 0.25 MG/ML VIAL IV SCH ×2 (10:55→22:05)
--- NOTE | 2019-08-04 11:47 | NUR ---
CAMP NURSE: is in room/updated with all above and suction amount, BM, IVF, orders
[2019-08-04] MEDS: VANCOMYCIN 1.25 GM in IV D5W 250 ML IV SCH (12:10)
--- NOTE | 2019-08-04 13:24 | NUR ---
TAX ADVISOR NOTES SPOKE WITH DR ROMANO , NOTIFIED BS OF 341 , ASKED MD IF HE WANTS TO CHANGE SLIDING SCALE FROM MODERATE TO AGGRESSIVE , PER MD GIVE LANTUS 30U BID , KEEP SLIDING SCALE TO MODERATE , PT STILL HAS LOW URINE OUTPUT AFTER BUMEX ORDERED . MD AWARE
[2019-08-04] MEDS: INSULIN GLARGINE, 100 UNIT/ML CARTRIDGE SQ SCH (17:25)
--- NOTE | 2019-08-04 18:55 | NUR ---
QUALITY SUPERVISOR: pt is sedated well, rest, no SOB, ST/SB, on 20 mcg/m Levophed gtt, MAP over 60, continue titrate, same Heparin gtt rate, next PTT at morning time, no external bleeding, suctioned well, still low urine output, BG covers with Lantus BID and ISS, all PM,skin,wounds care done
--- NOTE | 2019-08-04 19:30 | NUR ---
PUBLIC HEALTH PHYSICIAN RCD PT W/DX RESP FAIL; NSR ON MONITOR. INTUBATED 8 @ 24 W/VENT SETTINGS AC 18 550 50%; ON PROPOFOL @ 10 MCG/KG/MIN W/BSWR IN PLACE. AGUILAR CATH IN PLACE DRAINING SMALL AMOUNT OF DARK URINE. SACRAL OPEN WOUND NOTED. EVERT PICC IN PLACE W/LEVO @ 20 MCG/MIN; WILL TITRATE ACCORDINGLY.
--- NOTE | 2019-08-04 21:00 | NUR ---
IT SOLUTIONS SALES CONSULTANT PT ADEQUATELY SEDATED AT THIS TIME; BSWR REMOVED. CONTINUE TO MONITOR.
[2019-08-04] MEDS: ATORVASTATIN 10 MG TABLET PO SCH (22:05)
--- NOTE | 2019-08-04 23:00 | NUR ---
REVENUE LIAISON PT NOTED TO BE MILDLY AGITATED; PROPOFOL INCREASED TO 15 MCG/KG/MIN. CONTINUE TO MONITOR.
[2019-08-05] VITALS (86 sets, daily range): BP systolic 82–112; BP diastolic 37–53
[2019-08-05] MEDS: VANCOMYCIN HCL 125 MG/2.5 ML ORAL.SUSP NG SCH ×4 (00:28→17:03)
[2019-08-05] MEDS: METRONIDAZOLE 500MG/ NS 100ML 500 MG in PREMIX 1 EA IV SCH ×3 (00:30→16:34)
[2019-08-05] MEDS: INSULIN REGULAR, HUMAN 100 UNIT/ML 3 ML VIAL SQ PRN ×4 (00:31→17:03)
[2019-08-05] MEDS: BLOOD SUGAR DIAGNOSTIC 1 EACH STRIP IN SCH ×4 (00:32→17:03)
[2019-08-05] MEDS: IV NS 0.9% 1,000 ML IV PRN ×4 (02:26→20:10)
[2019-08-05 04:54] LABS: BASOPHILS # (AUTO) 0.4 /CMM (0.0-0.2); BASOPHILS % (AUTO) 1.2 % (0.0-2.0); HEMATOCRIT 32 % (39-51); HEMOGLOBIN 9.7 g/dL (13.5-17.5); LYMPHOCYTES # (AUTO) 0.6 /CMM (0.8-4.8); MEAN CORPUSCULAR HGB CONC 31 g/dl (31.0-36.0); MEAN CORPUSCULAR VOLUME 80 fL (80-96); MONOCYTES # (AUTO) 2.4 /CMM (0.1-1.30); MONOCYTES % (AUTO) 7.3 % (2.0-12.0); NEUTROPHILS # (AUTO) 29.2 /CMM (1.8-8.9); NEUTROPHILS % (AUTO) 89.5 % (43.0-81.0); PLATELET COUNT (AUTO) 230 /CMM (150-450); RED BLOOD CELL COUNT(AUTO) 3.93 MIL/uL (4.5-6.0)
[2019-08-05 05:00] LABS: WHITE BLOOD COUNT (AUTO) 32.7 K/uL (4.3-11.0)
[2019-08-05 05:04] LABS: CALCIUM, SERUM 7.3 mg/dL (8.5-10.1); CARBON DIOXIDE 16 mmol/L (21-32); CHLORIDE 91 mmol/L (98-107); CREATININE 5.1 mg/dL (0.6-1.3); GLUCOSE 342 mg/dL (74-106); POTASSIUM 3.5 mmol/L (3.5-5.1); SODIUM SERUM 124 mmol/L (136-145)
[2019-08-05 05:13] LABS: BAND % (MANUAL) 4 % (0.0-5.0); LYMPHOCYTES % (MANUAL) 2 % (16-48); MONOCYTES % (MANUAL) 6 % (0-11.0); NEUTROPHILS % (MANUAL) 88 (42-76)
[2019-08-05] MEDS: PIPERACILLIN /TAZOBACTAM 2.25 G in IV D5W 50 ML IV SCH ×3 (05:30→21:30)
[2019-08-05 05:39] LABS: UREA NITROGEN, BLOOD 83 mg/dL (7-18)
--- NOTE | 2019-08-05 07:18 | NUR ---
WELFARE PROJECT MANAGER PT REMAINED ON LEVOPHED AT 10 MCG/MIN AND PROPOFOL AT 15 MCG/KG/MIN; PT ADEQUATELY SEDATED AT THIS TIME.
--- NOTE | 2019-08-05 07:30 | NUR ---
ICU/RN OPENING NOTES RECEIVED PATIENT IN BED RESTING COMFORTABLY. NO ACUTE DISTRESS AT THIS TIME. RESPIRATION EVEN AND UNLABORED. SKIN IS DRY WARM TO TOUCH. PATIENT NOTED WITH EVERT PICC AND RAC #20G. INTACT AND PATENT FLUSHING WELL. NO S/S OR INFECTION OR INFILTRATION. PATIENT ABLE TO TOLERATE FEEDING AND MEDS WELL. HOB ELEVATED AT ALL TIMES TO PREVENT ASPIRATION. ALL NEEDS ANTICIPATED. CALL LIGHT WITHIN REACHED. BED LOCKED AND IN LOWEST POSITION. SAFETY MAINTAINED. WILL CONTINUE TO MONITOR CLOSELY.
[2019-08-05] MEDS: LACTOBACILLUS RHAMNOSUS GG 1 EACH CAP.SPRINK PO SCH (08:29)
[2019-08-05] MEDS: predniSONE 5 MG TABLET PO SCH (08:29)
[2019-08-05] MEDS: HYDROCORTISONE SOD SUCCINATE 100 MG/2 ML VIAL IV SCH ×3 (08:29→16:33)
[2019-08-05] MEDS: ASPIRIN 81 MG TAB.CHEW PO SCH (08:29)
[2019-08-05] MEDS: FAMOTIDINE/PF INJ 20 MG/2 ML VIAL IV SCH ×2 (08:29→21:29)
[2019-08-05] MEDS: ASCORBIC ACID 500 MG TABLET PO SCH ×2 (08:29→16:33)
[2019-08-05] MEDS: Z GUARD REMEDY 2 OZ OINT TP SCH (08:31)
[2019-08-05] MEDS: MYCOPHENOLATE MOFETIL 250 MG CAPSULE PO SCH ×2 (08:38→16:33)
[2019-08-05] MEDS: INSULIN GLARGINE, 100 UNIT/ML CARTRIDGE SQ SCH ×2 (08:42→17:02)
[2019-08-05] MEDS: NOREPINEPHRINE 16 MG in IV D5W 500 ML IV PRN (08:46)
[2019-08-05] MEDS: BUMETANIDE INJ 0.25 MG/ML VIAL IV SCH ×2 (08:52→21:30)
[2019-08-05] MEDS: PROPOFOL 100 ML IV PRN ×2 (10:52→20:10)
[2019-08-05] MEDS: ALBUMIN 25% 25 GM in PREMIX 1 EA IV SCH ×2 (12:37→17:04)
--- NOTE | 2019-08-05 15:00 | NUR ---
RN NOTES 1145 PTT 166.2. BLOOD DRAWN FROM PICC LINE. STAT PTT ORDERED. HEPARIN STILL INFUSING. DR SOLORIO NOTIFIED. WILL CLOSELY MONITOR. WILL FOLLOW HEPARIN PROTOCOL ORDERED. 1450 PTT 39. FOLLOWED HEPARIN PROTOCOL ORDERED. HEPARIN INFUSING AT 700U/HR. NEXT PTT AT 2050. WILL CLOSELY MONITOR
[2019-08-05] MEDS: HEPARIN INFUSION/D5W 500 ML IV PRN (15:15)
[2019-08-05] MEDS: NEPRO 1,000 ML BOTTLE GT PRN (15:54)
--- NOTE | 2019-08-05 19:16 | NUR ---
ICU/RN CLOSING NOTES PATIENT CONTINUES TO REMAIN IN STABLE CONDITION THROUGHOUT THE SHIFT. PROVIDED COMFORT AND SAFETY. PATIENT ABLE TO TOLERATE MEDICATIONS AND FEEDINGS WELL. ALL NEEDS ANTICIPATED. CALL LIGHT WITHIN REACHED. BED LOCKED AND IN LOWEST POSITION. REPOSITIONED Q2HRS. WILL CONTINUE TO MONITOR CLOSELY. ENDORSED TO PM NURSE FOR SHAYE.
[2019-08-05] MEDS: ATORVASTATIN 10 MG TABLET PO SCH (21:29)
[2019-08-06] VITALS (95 sets, daily range): BP systolic 78–115; BP diastolic 35–53
[2019-08-06] MEDS: BLOOD SUGAR DIAGNOSTIC 1 EACH STRIP IN SCH ×4 (01:00→17:03)
[2019-08-06] MEDS: VANCOMYCIN HCL 125 MG/2.5 ML ORAL.SUSP NG SCH ×4 (01:01→17:02)
[2019-08-06] MEDS: ALBUMIN 25% 25 GM in PREMIX 1 EA IV SCH ×2 (01:01→05:00)
[2019-08-06] MEDS: METRONIDAZOLE 500MG/ NS 100ML 500 MG in PREMIX 1 EA IV SCH ×3 (01:01→16:30)
[2019-08-06] MEDS: PROPOFOL 100 ML IV PRN ×3 (01:30→18:54)
[2019-08-06] MEDS: INSULIN REGULAR, HUMAN 100 UNIT/ML 3 ML VIAL SQ PRN ×4 (01:47→17:01)
[2019-08-06] MEDS: PIPERACILLIN /TAZOBACTAM 2.25 G in IV D5W 50 ML IV SCH ×3 (04:00→21:30)
[2019-08-06 04:46] LABS: BASOPHILS % (AUTO) 0.1 % (0.0-2.0); HEMATOCRIT 28 % (39-51); HEMOGLOBIN 8.5 g/dL (13.5-17.5); LYMPHOCYTES # (AUTO) 0.7 /CMM (0.8-4.8); LYMPHOCYTES % (AUTO) 2.6 % (20.0-44.0); MEAN CORPUSCULAR HGB CONC 31 g/dl (31.0-36.0); MEAN CORPUSCULAR VOLUME 81 fL (80-96); MONOCYTES # (AUTO) 1.6 /CMM (0.1-1.30); NEUTROPHILS # (AUTO) 23.6 /CMM (1.8-8.9); NEUTROPHILS % (AUTO) 91.3 % (43.0-81.0); PLATELET COUNT (AUTO) 163 /CMM (150-450); RED BLOOD CELL COUNT(AUTO) 3.42 MIL/uL (4.5-6.0); WHITE BLOOD COUNT (AUTO) 25.9 K/uL (4.3-11.0)
[2019-08-06 05:09] LABS: CALCIUM, SERUM 7.9 mg/dL (8.5-10.1); CARBON DIOXIDE 16 mmol/L (21-32); CHLORIDE 91 mmol/L (98-107); CREATININE 5.2 mg/dL (0.6-1.3); GLUCOSE 288 mg/dL (74-106); MAGNESIUM 1.9 mg/dL (1.8-2.4); SODIUM SERUM 124 mmol/L (136-145)
[2019-08-06 05:26] LABS: PHOSPHORUS 8.8 mg/dL (2.5-4.9); UREA NITROGEN, BLOOD 85 mg/dL (7-18)
--- NOTE | 2019-08-06 07:00 | NUR ---
RN NOTE RECEIVED PT ON BED, ORALLY INTUBATED , SEDATED, ON PROPOFOL DRIP AT 15 MCG/KG/MIN TOLERATING CURRENT VENT SETTING WELL, NO S/S OF RESP DISTRESS. O2 SAT WNL , PATIENT HAS R UA PICC LINE WITH LEVO AT 3MCG/MIN MG, AND NS AT 100 ML/HR AND HEPARIN AT 700UNITS /HR RUNNING , SR UP x3, CALL LIGHT WITHIN EASY REACH, SAFETY PRECAUTIONS IN PLACE.BED LOCKED AND IN LOWEST POSITION, CONTINUE TO MONITOR.
[2019-08-06] MEDS: HYDROCORTISONE SOD SUCCINATE 100 MG/2 ML VIAL IV SCH ×3 (08:12→16:12)
[2019-08-06] MEDS: FAMOTIDINE/PF INJ 20 MG/2 ML VIAL IV SCH ×2 (08:13→21:30)
[2019-08-06] MEDS: MYCOPHENOLATE MOFETIL 250 MG CAPSULE PO SCH ×2 (08:13→16:12)
[2019-08-06] MEDS: ASCORBIC ACID 500 MG TABLET PO SCH ×2 (08:13→16:12)
[2019-08-06] MEDS: LACTOBACILLUS RHAMNOSUS GG 1 EACH CAP.SPRINK PO SCH (08:13)
[2019-08-06] MEDS: ASPIRIN 81 MG TAB.CHEW PO SCH (08:13)
[2019-08-06] MEDS: predniSONE 5 MG TABLET PO SCH (08:13)
[2019-08-06] MEDS: INSULIN GLARGINE, 100 UNIT/ML CARTRIDGE SQ SCH ×2 (08:16→17:02)
[2019-08-06] MEDS: Z GUARD REMEDY 2 OZ OINT TP SCH (08:18)
[2019-08-06] MEDS: BUMETANIDE INJ 0.25 MG/ML VIAL IV SCH ×2 (09:06→21:30)
--- NOTE | 2019-08-06 09:30 | NUR ---
RN NOTES DR QUIGLEY NOTIFIED REGARDING K=3.0
[2019-08-06] MEDS: IV NS 0.9% 1,000 ML IV PRN (10:02)
[2019-08-06] MEDS: POTASSIUM CL. PREMIX PERIPHER. 50 ML IV SCH ×2 (11:51→12:46)
[2019-08-06] MEDS: NOREPINEPHRINE 16 MG in IV D5W 500 ML IV PRN (12:06)
[2019-08-06] MEDS: SEVELAMER CARBONATE 0.8 GM POWD.PACK GT SCH ×2 (12:13→17:02)
--- NOTE | 2019-08-06 14:00 | NUR ---
RN NOTES PT NOTED WITH MODERATE AMOUNT OF LOOSE STOOL , MD NOTIFED , FLEXISEAL INSERTED PER MD ORDER . CONTINUE TO MONITOR
[2019-08-06 14:47] LABS: ABG BASE EXCESS -15.4 mmol/L; ABG OXYGEN SATURATION 95.3 % (92.0-98.5); ABG PCO2 38.6 mmHg (35.0-45.0); ABG PH 7.137 (7.350-7.450); ABG PO2 96.3 mmHg (75.0-100.0); AaDO2 216.8 mmHg; COHb 0.3 % (0.5-1.5); MetHb 0.6 % (0.0-1.5); O2Hb 94.4 % (94.0-97.0); SITE, ABG Right Radial; VT, ABG 550 mL
--- NOTE | 2019-08-06 14:50 | NUR ---
RN NOTES DR SHARMA AND DR OJEDA NOTIFED REGARDING ABG RESULTS, NEW ORDER RECEIVED
--- NOTE | 2019-08-06 15:00 | NUR ---
RN NOTES SMALL AMOUNT OF BLOODY DRAINAGE NOTED FROM PT'S PENIS . DR QUIGLEY NOTIFED .CONTINUE TO MONITOR .
[2019-08-06] MEDS: HEPARIN INFUSION/D5W 500 ML IV PRN (15:25)
[2019-08-06] MEDS ORDERED: IV D5W 1,000 ML IV PRN (15:30)
[2019-08-06] MEDS ORDERED: Sodium Bicarbonate 150 MEQ in IV D5/ 0.9% NACL 1,000 ML IV PRN (15:30)
[2019-08-06] MEDS: NEPRO 1,000 ML BOTTLE GT PRN (16:04)
[2019-08-06] MEDS: Sodium Bicarbonate 150 MEQ in IV D5W 1,000 ML IV PRN (16:39)
--- NOTE | 2019-08-06 17:00 | NUR ---
RN NOTES DR QUIGLEY NOTIFED REGARDING LOW URINE OUTPUT TODAY .
--- NOTE | 2019-08-06 17:00 | NUR ---
RN NOTES DR OJEDA NOTIFED REGARDING PT'S BLOOD GLUCOSE LEVEL , OK TO START D5W WITH BICARB PER DR OJEDA.
--- NOTE | 2019-08-06 18:08 | NUR ---
RN NOTES PT'S FAMILY REQUESTING TO TALK TO DR QUIGLEY REGARDING PROGNOSIS AND WHETHER TO CONTINUE THE TREATMENT OR NOT. DR QUIGLEY NOTIFED.
--- NOTE | 2019-08-06 18:15 | NUR ---
RN NOTES WILL ENDOSE TO PLAYROOM ATTENDANT NURSE FOR CONTINUITY OF CARE
[2019-08-06] MEDS: ATORVASTATIN 10 MG TABLET PO SCH (21:30)
[2019-08-07] VITALS (94 sets, daily range): BP systolic 78–146; BP diastolic 36–101
[2019-08-07] MEDS: BLOOD SUGAR DIAGNOSTIC 1 EACH STRIP IN SCH ×4 (00:29→17:26)
[2019-08-07] MEDS: VANCOMYCIN HCL 125 MG/2.5 ML ORAL.SUSP NG SCH ×4 (00:30→17:26)
[2019-08-07] MEDS: VANCOMYCIN 1.25 GM in IV D5W 250 ML IV SCH (00:30)
[2019-08-07] MEDS: METRONIDAZOLE 500MG/ NS 100ML 500 MG in PREMIX 1 EA IV SCH ×4 (00:30→16:58)
[2019-08-07] MEDS ORDERED: IV NS 0.9% 250 ML IV PRN (01:00)
[2019-08-07] MEDS: INSULIN REGULAR, HUMAN 100 UNIT/ML 3 ML VIAL SQ PRN ×4 (01:01→17:28)
[2019-08-07] MEDS: PROPOFOL 100 ML IV PRN ×3 (04:31→20:09)
[2019-08-07] MEDS: PIPERACILLIN /TAZOBACTAM 2.25 G in IV D5W 50 ML IV SCH ×3 (04:31→20:08)
[2019-08-07 05:05] LABS: CARBON DIOXIDE 15 mmol/L (21-32); CHLORIDE 89 mmol/L (98-107); CREATININE 5.4 mg/dL (0.6-1.3); GLUCOSE 244 mg/dL (74-106); POTASSIUM 3.2 mmol/L (3.5-5.1); SODIUM SERUM 123 mmol/L (136-145)
[2019-08-07 05:14] LABS: UREA NITROGEN, BLOOD 89 mg/dL (7-18)
--- NOTE | 2019-08-07 06:00 | NUR ---
UNIT EDUCATOR BED SCALE NOT WORKING AT THIS TIME; PENDING BARIATRIC BED PLACEMENT.
[2019-08-07] MEDS ORDERED: BUMETANIDE INJ 0.25 MG/ML VIAL IV SCH (06:30)
--- NOTE | 2019-08-07 06:40 | NUR ---
CHANNEL MARKETING SPECIALIST NO URINE OUTPUT THROUGHOUT SHIFT. LEVOPHED INCREASED PER PROTOCOL SBP KEPT DROPPING. DAUGHTER GIVEN UPDATE ON PT CONDITION. WILL BE HERE AT 1000 FOR FAMILY MEETING.
--- NOTE | 2019-08-07 07:40 | NUR ---
ICU/RN PT IS INTUBATED ON THE VENT AC MODE,FIO2-50%.PT IS ON LEVOPHED DRIP,HEPARIN DRIP DUE TO NSTEMI,IRREGULAR HR.ON BICARB DRIP,SEDATED WITH PROPOFOL.AFEBRILE.NO PAIN REPORTED AT THIS TIME.OG TUBE INFUSING WITH NEPRO AT 45 ML /HR.NO RESIDUAL NOTED.F/C IN PLACE.NO URINE OUTPUT.RECTAL TUBE .GENERALIZED EDEMA PRESENT.PT IS RESPONSIVE ON PAIN STIMULATION.MULTIPLY BRUISES NOTED.SUCTION PROVIDED.REPOSITION FOR COMFORT.
[2019-08-07] MEDS: ASCORBIC ACID 500 MG TABLET PO SCH ×2 (08:12→16:58)
[2019-08-07] MEDS: ASPIRIN 81 MG TAB.CHEW PO SCH (08:12)
[2019-08-07] MEDS: predniSONE 5 MG TABLET PO SCH (08:12)
[2019-08-07] MEDS: LACTOBACILLUS RHAMNOSUS GG 1 EACH CAP.SPRINK PO SCH (08:12)
[2019-08-07] MEDS: SEVELAMER CARBONATE 0.8 GM POWD.PACK GT SCH ×3 (08:13→17:34)
[2019-08-07] MEDS: FAMOTIDINE/PF INJ 20 MG/2 ML VIAL IV SCH ×2 (08:13→20:07)
[2019-08-07] MEDS: MYCOPHENOLATE MOFETIL 250 MG CAPSULE PO SCH ×2 (08:13→16:58)
[2019-08-07] MEDS: HYDROCORTISONE SOD SUCCINATE 100 MG/2 ML VIAL IV SCH ×3 (08:13→16:58)
[2019-08-07] MEDS: Z GUARD REMEDY 2 OZ OINT TP SCH (08:15)
[2019-08-07] MEDS: INSULIN GLARGINE, 100 UNIT/ML CARTRIDGE SQ SCH ×2 (08:18→17:26)
[2019-08-07 08:37] LABS: ABG BASE EXCESS -12.7 mmol/L; ABG OXYGEN SATURATION 96.6 % (92.0-98.5); ABG PCO2 39.1 mmHg (35.0-45.0); ABG PH 7.191 (7.350-7.450); ABG PO2 108.3 mmHg (75.0-100.0); AaDO2 204.2 mmHg; COHb 0.3 % (0.5-1.5); MetHb 0.7 % (0.0-1.5); O2Hb 95.6 % (94.0-97.0); SITE, ABG Right Radial
[2019-08-07 08:52] LABS: BASOPHILS # (AUTO) 0.1 /CMM (0.0-0.2); BASOPHILS % (AUTO) 0.3 % (0.0-2.0); HEMATOCRIT 32 % (39-51); HEMOGLOBIN 9.7 g/dL (13.5-17.5); LYMPHOCYTES # (AUTO) 0.7 /CMM (0.8-4.8); MEAN CORPUSCULAR HGB CONC 31 g/dl (31.0-36.0); MEAN CORPUSCULAR VOLUME 81 fL (80-96); MONOCYTES # (AUTO) 2.2 /CMM (0.1-1.30); MONOCYTES % (AUTO) 6.7 % (2.0-12.0); NEUTROPHILS # (AUTO) 30.4 /CMM (1.8-8.9); PLATELET COUNT (AUTO) 173 /CMM (150-450); RED BLOOD CELL COUNT(AUTO) 3.91 MIL/uL (4.5-6.0)
[2019-08-07 08:57] LABS: WHITE BLOOD COUNT (AUTO) 33.5 K/uL (4.3-11.0)
--- NOTE | 2019-08-07 09:00 | NUR ---
ICU/RN DUE MEDS ARE GIVEN ORDERED.ABG DONE LABS REVIEW.MD NOTIFIED.NEW ORDERS RECEIVED.
[2019-08-07 09:12] LABS: BAND % (MANUAL) 2 % (0.0-5.0); LYMPHOCYTES % (MANUAL) 2 % (16-48); MONOCYTES % (MANUAL) 7 % (0-11.0); NEUTROPHILS % (MANUAL) 89 (42-76)
[2019-08-07] MEDS: Sodium Bicarbonate 150 MEQ in IV D5W 1,000 ML IV PRN (09:21)
[2019-08-07] MEDS: NOREPINEPHRINE 16 MG in IV D5W 500 ML IV PRN ×2 (13:05→16:59)
[2019-08-07] MEDS: NEPRO 1,000 ML BOTTLE GT PRN (15:36)
[2019-08-07] MEDS: HEPARIN INFUSION/D5W 500 ML IV PRN (15:38)
[2019-08-07] MEDS: Sodium Bicarbonate 100 MEQ in IV 1/2NS 1000 ML 1,000 ML IV PRN (16:20)
--- NOTE | 2019-08-07 17:35 | NUR ---
ICU/RN PM CARE PROVIDED. WOUND DRESSING DONE ORDERED.DUE MEDS ARE GIVEN.FAMILY AT BED SIDE. PER FAMILY REQUEST PT WILL TERMINALLY EXTUBATED ON 08/08/19 IN AM. CHARGE NURSE NOTIFIED.
--- NOTE | 2019-08-07 18:36 | NUR ---
DAIRY FEED WORKER RECEIVED PHONE CALL FROM DR SOLORIO. PT WILL HAVE TERMINAL EXTUBATION TOMORROW AT 0800 PER FAMILY DECISION. ORDER FOR MORPHINE DRIP FOR TOMORROW RECEIVED.
--- NOTE | 2019-08-07 19:30 | NUR ---
ECG TECHNICIAN NOTES RECEIVED PATIENT IN BED, ASLEEP, EYES CLOSED, OBTUNDED AT BASELINE. BREATHING EVEN AND NONLABORED, ORALLY INTUBATED, ON MECHANICAL VENTILATION AT PRESCRIBED SETTINGS, TOLERATING WELL, NO RESPIRATORY DISTRESS AT THIS TIME. BEDSIDE MONITOR READS SINUS RHYTHM WITH 1ST HB, BBB, FREQUENT PVCs AND PACs. RECTAL TUBE PATENT AND INTACT, DRAINING LIQUID BROWN STOOL VIA GRAVITY. AGUILAR CATHETER PATENT AND INTACT, NO URINE OUTPUT AT THIS TIME.
--- NOTE | 2019-08-07 20:11 | NUR ---
PT RECEIVED ON VENT VIA ETT SECURE VIA ANCHOR FAST. AMBU BAG AT BEDSIDE ALARMS SET AND AUDIBLE. PT RECEIVING NO BREATHING TX AT THIS TIME. HEAD OF BED AT 30 DEGREES Addendum: 08/07/19 at 2011 by ABDI MAHONEY RT Amended: Links added.
[2019-08-07] MEDS: ATORVASTATIN 10 MG TABLET PO SCH (22:19)
[2019-08-08] VITALS (33 sets, daily range): BP systolic 48–155; BP diastolic 23–60
[2019-08-08] MEDS: BLOOD SUGAR DIAGNOSTIC 1 EACH STRIP IN SCH ×2 (00:30→05:00)
[2019-08-08] MEDS: METRONIDAZOLE 500MG/ NS 100ML 500 MG in PREMIX 1 EA IV SCH (00:31)
[2019-08-08] MEDS: VANCOMYCIN HCL 125 MG/2.5 ML ORAL.SUSP NG SCH ×2 (00:31→05:00)
[2019-08-08] MEDS: INSULIN REGULAR, HUMAN 100 UNIT/ML 3 ML VIAL SQ PRN ×2 (00:34→05:12)
[2019-08-08] MEDS: PROPOFOL 100 ML IV PRN (03:10)
[2019-08-08] MEDS: Sodium Bicarbonate 100 MEQ in IV 1/2NS 1000 ML 1,000 ML IV PRN (03:14)
[2019-08-08] MEDS: PIPERACILLIN /TAZOBACTAM 2.25 G in IV D5W 50 ML IV SCH (05:00)
--- NOTE | 2019-08-08 06:00 | NUR ---
FISH WORM GROWER NOTES BED SCALE BROKEN, UNABLE TO CHECK DAILY WEIGHT
[2019-08-08] MEDS ORDERED: MORPHINE IV PRN ×3 (07:00)
[2019-08-08] MEDS ORDERED: MORPHINE SULFATE PF DRIP 250 MG in IV D5W 240 ML IV PRN ×2 (07:00→12:00)
--- NOTE | 2019-08-08 09:02 | NUR ---
RT PER MD ORDER PATIENT WAS EXTUBATED AND PLACED ON SUPPLEMENTAL O2. COMFORT MEASURE IN PLACE
[2019-08-08] MEDS: LORAZEPAM INJ 2 MG/ML VIAL IV PRN ×7 (09:07→17:54)
--- NOTE | 2019-08-08 09:56 | NUR ---
RN NOTE 0715: Received patient with ETT to vent, tolerated settings, no respiratory distress noted at this time. With EVERT PICC intact. Camara cath intact, no residuals. OGT intact, turned off feeding. On contact iso for CDiff, maintained and observed. On Levo @ 4mcg. Previous shift started on Morphine @ 2mg, turned off Diprivan. Awaiting family for terminal extubation. 0800: Turned off all other IV, Heparin, Bicarb drip and Levo. Family at bedside, verbalized understanding about the plan of care, changing to comfort measures. 0845: S/E by Dr. Michael MD spoke with family. 0850: S/E by Sincere MERCER, spoke with family and all questions and concerns were answered. 0900: Extubated by RT, removed OGT. placed on 3mg/hr of Morphine and Ativan given as ordered. 0930: Reached 10mg/hr of Morphine, family at bedside, aware everytime titrating up secondary to patient showing hard time breathing, gasping for air and using accessory muscles when breathing. 0955: Still on Morphine 10mg/hr, patient remained comfortable. Family at bedside, offered self.
--- NOTE | 2019-08-08 18:32 | NUR ---
RN NOTE 1800: Called admitting, spoke with Nela, following up if needed another medical record number, she said she is waiting for another personnel in admitting, continue current treatment and meds, carried out Scopolamine. 1830: Daughter Ynes still at bedside, awaiting bed availability in med surg.
--- NOTE | 2019-08-08 19:50 | NUR ---
RN NOTES POST MORTEM CARE DONE. WAITED FOR THE DAUGHTER TO COME.
[2019-08-08] MEDS ORDERED: SCOPOLAMINE HBR 1 EA PATCH.TD72 TD SCH (20:00)
--- NOTE | 2019-08-08 20:25 | NUR ---
RN NOTES [facility] [employer] SPOKE WITH JOY, PER JOY SHE WILL CALL BACK.
--- NOTE | 2019-08-08 20:46 | NUR ---
RN NOTES JOY FROM [facility]( [facility]) CALLED BACK AND STATED THAT SHE WILL CALL THE NURSING OFFICE TO RELEASE THE FORM.
--- NOTE | 2019-08-08 21:30 | NUR ---
RN NOTES SALVATORE () AND DONATO (DAUGHTER) LEFT AND SIGNED THE RELEASE FORM FROM [facility]. FAMILY APPRECIATE AND SATISFIED THE HOSPITAL CARE .
--- NOTE | 2019-08-08 21:43 | NUR ---
RN NOTES PATIENT PICKED UP BY SECURITY ACCOMPANIED BY 1 RN AND PLACED TO [facility].
== END 2019-08-08 18:57 | disposition expired | DRG 870 ==
LOC: ER 13:18 → ICU 15:46
PROVIDERS: ADMIT Internal Medicine; ATTEND Hospitalist
PROC: B548ZZA Ultrasonography of Superior Vena Cava, Guidance (ICD-10-PCS; principal; 2019-08-01)
PROC: 02HV33Z Insertion of Infusion Device into Superior Vena Cava, Percutaneous Approach (ICD-10-PCS; principal; 2019-08-01)
PROC: 0BH17EZ Insertion of Endotracheal Airway into Trachea, Via Natural or Artificial Opening (ICD-10-PCS; principal; 2019-08-01)
PROC: 5A1955Z Respiratory Ventilation, Greater than 96 Consecutive Hours (ICD-10-PCS; principal; 2019-08-01)
PROC: 30233N1 Transfusion of Nonautologous Red Blood Cells into Peripheral Vein, Percutaneous Approach (ICD-10-PCS; 2019-08-02)
DX: A41.9 Sepsis, unspecified organism (principal); R65.21 Severe sepsis with septic shock; G93.41 Metabolic encephalopathy; J69.0 Pneumonitis due to inhalation of food and vomit; J96.01 Acute respiratory failure with hypoxia; Z51.5 Encounter for palliative care; N17.0 Acute kidney failure with tubular necrosis; I21.4 Non-ST elevation (NSTEMI) myocardial infarction; A04.72 Enterocolitis due to Clostridium difficile, not specified as recurrent; E87.1 Hypo-osmolality and hyponatremia; E87.2 Acidosis; M62.82 Rhabdomyolysis; N39.0 Urinary tract infection, site not specified; T86.12 Kidney transplant failure; E27.40 Unspecified adrenocortical insufficiency; J90 Pleural effusion, not elsewhere classified; E86.0 Dehydration; D63.1 Anemia in chronic kidney disease; E11.22 Type 2 diabetes mellitus with diabetic chronic kidney disease; E83.39 Other disorders of phosphorus metabolism; E83.42 Hypomagnesemia; E87.6 Hypokalemia; E88.09 Other disorders of plasma-protein metabolism, not elsewhere classified; I25.10 Atherosclerotic heart disease of native coronary artery without angina pectoris; N40.0 Benign prostatic hyperplasia without lower urinary tract symptoms; Z95.1 Presence of aortocoronary bypass graft; Z95.2 Presence of prosthetic heart valve; Z79.4 Long term (current) use of insulin; R40.2433 Glasgow coma scale score 3-8, at hospital admission; M10.9 Gout, unspecified; I12.9 Hypertensive chronic kidney disease with stage 1 through stage 4 chronic kidney disease, or unspecified chronic kidney disease; Y84.8 Other medical procedures as the cause of abnormal reaction of the patient, or of later complication, without mention of misadventure at the time of the procedure; Y92.009 Unspecified place in unspecified non-institutional (private) residence as the place of occurrence of the external cause; N18.9 Chronic kidney disease, unspecified; Z79.01 Long term (current) use of anticoagulants; I25.2 Old myocardial infarction; Z86.73 Personal history of transient ischemic attack (TIA), and cerebral infarction without residual deficits; Z79.899 Other long term (current) drug therapy; I45.10 Unspecified right bundle-branch block; I49.3 Ventricular premature depolarization; Y83.0 Surgical operation with transplant of whole organ as the cause of abnormal reaction of the patient, or of later complication, without mention of misadventure at the time of the procedure; E11.65 Type 2 diabetes mellitus with hyperglycemia; I34.0 Nonrheumatic mitral (valve) insufficiency
CPT/HCPCS: 31720; 36415; 36569; 36600; 70450-TC; 71045-TC; 76770-TC; 80048-TC; 80053-TC; 80061-TC; 80076-TC; 80158; 80202-TC; 80305; 81000-TC; 82010-TC; 82533; 82550-TC; 82570-TC; 82803-TC; 82962-TC; 83605-TC; 83735-TC; 83880; 83970; 84100-TC; 84155; 84155-TC; 84165; 84300-TC; 84439-TC; 84443-TC; 84478-TC; 84484-TC; 85025-TC; 85730-TC; 86850-TC; 86921-TC; 87040-TC; 87081-TC; 87086-TC; 93307-TC; 94002-TC; 94003-TC; 94760-TC; 94799-TC; 99082-TC; A4216; A6253; C1751; G0378; G0480; J0330; J1644; J1720; J1815; J1940; J2060; J2270; J2274; J2370; J2543; J3370; J3475; J3480; J3490; J7030; J7040; J7042; J7050; J7060; J7070; J7502; J7512; J7517; P9016-BL; P9047